=== PATIENT | female | born 1980 | race Caucasian/White ===

== ENCOUNTER → 2016-05-13 | Outpatient (CLI) | payer BC ==
--- NOTE | 2016-05-13 18:29 | Diagnostic Imaging Report ---
Bilateral renal ultrasound. INDICATION: Hypertension. FINDINGS: The right kidney is 11.2 cm and the left kidney is 10.7 cm in length. There is no hydronephrosis or focal lesion. The urinary bladder appears unremarkable. IMPRESSION: Unremarkable exam. Dictated by: Dictated on workstation # [id number]
== END ==
LOC: RAD 15:48
PROVIDERS: ATTEND Nurse Practitioner Community Health
DX: I10 Essential (primary) hypertension (principal)
CPT/HCPCS: 76770

== ENCOUNTER → 2021-03-16 | Outpatient (CLI) | payer BC ==
--- NOTE | 2021-03-16 17:06 | Diagnostic Imaging Report ---
PROCEDURE: CT sinuses without contrast TECHNIQUE: Multiple contiguous axial images were obtained through the sinuses without the use of intravenous contrast. Coronal and sagittal reformations were then performed. Auto Exposure Controls were utilized during the CT exam to meet ALARA standards for radiation dose reduction. INDICATION: Chronic sinusitis COMPARISON: None available. FINDINGS: The frontal sinuses are clear. Frontoethmoidal recesses are clear. Ethmoid air cells are clear. The sphenoid sinuses are clear. The maxillary sinuses are clear. The visualized portions of the mastoid air cells and middle ear cavities are clear. The lamina papyracea are intact. No temporomandibular joint dislocation. 6 mm rightward projecting nasal spur. 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 The right ostiomeatal complex is patent. Left ostiomeatal complex is narrowed. No acute facial fracture. The orbits are unremarkable. The parapharyngeal fat is symmetric and well maintained. No intracranial midline shift or hydrocephalus within the [id number]. IMPRESSION: The paranasal sinuses are clear. 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 Narrowing of the left ostiomeatal complex Dictated by: Dictated on workstation # [id number]
== END ==
LOC: RAD 15:54
PROVIDERS: ATTEND Otolaryngology Otolaryngology/Facial Plastic Surgery
DX: J34.89 Other specified disorders of nose and nasal sinuses (principal); J32.9 Chronic sinusitis, unspecified; J34.2 Deviated nasal septum
CPT/HCPCS: 70486